=== PATIENT | male | born 1950 | race Caucasian/White ===

== ENCOUNTER → 2017-01-30 | Outpatient (CLI) | payer MEDICARE, BC ==
[~2017-01-30] MED LIST: SIMV80TA3 PO; TRAV5DRO OP
--- NOTE | 2017-01-30 15:09 | RAD ---
FDG tumor localization scan-incomplete exam, PET/CT, 01/30/2017: History: Restaging lung cancer Following IV injection of 13.6 mCi of 18 F-FDG, imaging was performed from the skull base to the proximal thighs. Due to equipment malfunction, PET data could not be obtained from the midabdomen and there are extensive artifacts on adjacent images. This study is therefore inadequate for diagnostic purposes. The patient is being rescheduled for a repeat examination which will be reported separately.
== END | disposition home or self-care (01) ==
LOC: PETSC 09:08
PROVIDERS: ATTEND Internal Medicine Hematology & Oncology
DX: C34.90 Malignant neoplasm of unspecified part of unspecified bronchus or lung (principal)
CPT/HCPCS: 78815; A9552

== ENCOUNTER → 2017-11-27 | Outpatient (CLI) | payer MEDICARE, BC ==
[~2017-11-27] MED LIST changes: +CONTRAST GIVEN MC; -SIMV80TA3 PO; -TRAV5DRO OP
[2017-11-27 08:28] LABS: GFR 74.1
[2017-11-27 08:28] LABS: BLOOD UREA NITROGEN 12 mg/dL (8-26)
[2017-11-27] MEDS: IOHEXOL 300 MG/ML 100ML VIAL. IV (08:39)
== END | disposition home or self-care (01) ==
LOC: CT 07:21
DX: C34.90 Malignant neoplasm of unspecified part of unspecified bronchus or lung (principal); I25.10 Atherosclerotic heart disease of native coronary artery without angina pectoris; J43.9 Emphysema, unspecified; M41.84 Other forms of scoliosis, thoracic region
CPT/HCPCS: 36415; 71260; 82565; 84520; Q9967